=== PATIENT | female | born 1975 | race Caucasian/White ===

== ENCOUNTER 2016-06-14 06:13 | Day surgery (SDC) | payer OTHER ==
[~2016-06-14] VITALS: Ht 160 cm; Wt 63.5 kg
[2016-06-14] MEDS ORDERED: fentaNYL CITRATE 250 MCG/5 ML AMP IV ONE (07:10)
[2016-06-14] MEDS ORDERED: SEVOFLURANE 15 MIN GAS INH ONE (07:10)
[2016-06-14] MEDS ORDERED: NEOSTIGMINE METHYLSULFATE 1 MG/ML, 10 ML VIAL IVP ONE (07:10)
[2016-06-14] MEDS ORDERED: MIDAZOLAM HCL 5 MG/5 ML VIAL IVP ONE (07:10)
[2016-06-14] MEDS ORDERED: FUROSEMIDE 20 MG/2 ML VIAL IVP ONE (07:10)
[2016-06-14] MEDS ORDERED: GLYCOPYRROLATE 0.2 MG/ML VIAL IJ ONE (07:10)
[2016-06-14] MEDS ORDERED: DEXAMETHASONE SOD PHOSPHATE 4 MG/ML VIAL IVP ONE (07:10)
[2016-06-14] MEDS ORDERED: BUPIVACAINE /EPINEPHRINE/PF 0.5% 30 ML VIAL INJ ONE (07:10)
[2016-06-14] MEDS ORDERED: D5W 50 ML IV.SOLN IV ONE (07:10)
[2016-06-14] MEDS ORDERED: PROPOFOL 200MG/ 20ML VIAL (DIPRIVAN) IV ONE (07:10)
[2016-06-14] MEDS ORDERED: KETOROLAC TROMETHAMINE 30 MG VIAL IVP ONE (07:10)
[2016-06-14] MEDS ORDERED: ROCURONIUM BROMIDE 10 MG/ML (ZEMURON) IV ONE (07:10)
[2016-06-14] MEDS ORDERED: CEFAZOLIN 1 GM IVPB PREMIX 50 ML IV ONE (07:10)
[2016-06-14] MEDS ORDERED: NS 1000 ML BAG IV ONE (07:10)
[2016-06-14] MEDS ORDERED: LR 1,000 ML IV.SOLN IV ONE (07:10)
[2016-06-14] MEDS ORDERED: CEFAZOLIN SOD 1 GM in D5W 50 ML IV ONE (08:00)
[2016-06-14] MEDS ORDERED: LR 1,000 ML IV SCH (08:24)
[2016-06-14] MEDS ORDERED: HYDROmorphone 2 MG/ML VIAL IVP PRN ×2 (08:30)
[2016-06-14] MEDS ORDERED: HYDROmorphone 1 MG INJ. 1 MG/ML AMPUL IVP PRN (08:30)
[2016-06-14] MEDS ORDERED: MEPERIDINE HCL/PF 25 MG/ML DISP.SYRIN IVP PRN (08:30)
[2016-06-14 10:00] VITALS: BP_SYST 152
[2016-06-14] MEDS ORDERED: OXYCODONE/ACETAMINOPHEN 5-325 TABLET PO PRN ×2 (10:00)
[2016-06-14] MEDS ORDERED: ONDANSETRON HCL 4 MG/2 ML VIAL IVP PRN (10:00)
[2016-06-14] MEDS ORDERED: HYDROcodone/ACETAMIN 5-325 MG TAB (NORCO/ VICODIN) PO PRN (10:00)
[2016-06-14] MEDS ORDERED: HYDROmorphone 1 MG INJ. 1 MG/ML AMPUL ONE (10:39)
[2016-06-14] MEDS ORDERED: KETOROLAC TROMETHAMINE 30 MG VIAL IM ONE (14:00)
[2016-06-14] MEDS: SIMETHICONE 80 MG TAB.CHEW PO SCH ×3 (14:19→21:00)
[2016-06-14] MEDS ORDERED: KETOROLAC TROMETHAMINE 30 MG VIAL IVP SCH (20:00)
== END 2016-06-15 12:00 | disposition home or self-care (01) ==
LOC: SDS 06:13 → SMU 06:14 → SPU 11:25 → SDS 06-15 12:00
PROVIDERS: ATTEND Specialist
DX: D25.0 Submucous leiomyoma of uterus (principal); N83.292 Other ovarian cyst, left side; N39.3 Stress incontinence (female) (male); N81.6 Rectocele
CPT/HCPCS: 52000; 57000; 58571; 88307; C1727; J0690; J1100; J1170; J1885; J1940; J2250; J2704; J2710; J3010; J3490 ×2; J7030; J7060; J7120

== ENCOUNTER 2017-10-18 08:32 | Inpatient (IN) | payer OTHER ==
[~2017-10-18] VITALS: Ht 160 cm; Wt 61.2 kg
[2017-10-18] MEDS ORDERED: POLYMYXIN 500,000/BACIT.10,000 UNITS in NS IRR 1 L IR ONE (10:28)
[2017-10-18] MEDS ORDERED: LR 1,000 ML IV SCH (12:13)
[2017-10-18] MEDS ORDERED: MORPHINE 4 MG/ML INJ. SYRINGE IVP PRN ×3 (12:15)
[2017-10-18] MEDS ORDERED: METOCLOPRAMIDE HCL 10 MG/2 ML VIAL IVP PRN (12:15)
[2017-10-18] MEDS ORDERED: ONDANSETRON HCL 4 MG/2 ML VIAL IVP PRN (13:00)
--- NOTE | 2017-10-18 13:45 | NUR ---
ADMISSION: The patient, LINCOLN SHIELDS, 42 y/o, F admitted by from PACU, was given written information regarding hospital policies, unit procedures and contact persons. Valuables were checked and belongings will be at bedside but lilli valadez taken home by . PATIENT AWAKE. A/Ox4. ROOM AIR. NO ACUTE DISTRESS. NO SOB. RESPIRATION EVEN AND UNLABORED. PATIENT C/O BEING SORE BUT MANAGEABLE. SKIN WARM AND DRY TO TOUCH. IV TO LEFT HAND 20G INTACT AND PATENT WITH NO S/SX INFECTION/INFILTRATION NOTED. FULTON CATH INTACT AND PATENT WITH YELLOW URINE NOTED. GABBIE BILAT SCDs. ORIENTED PATIENT TO CALL LIGHT AND TO USE FOR ASSIST, PATIENT VERBALIZED UNDERSTANDING. ALL NEEDS MET. CALL LIGHT IN REACH. CONTINUE TO MONITOR. AT BEDSIDE.
[2017-10-18 14:00] VITALS: BP_SYST 109
--- NOTE | 2017-10-18 14:30 | NUR ---
NOTES PATIENT SITTING UP IN BED. INSTRUCTED PATIENT TO USE INCENTIVE SPIROMETER. PATIENT DEMONSTRATED AND WAS ABLE TO DO 1500-2000CC. INSTRUCTED PATIENT TO ATTEMPT 10X/HR, PATIENT VERBALIZED UNDERSTANDING. AT BEDSIDE. CONT TO MONITOR. CALL LIGHT IN REACH.
--- NOTE | 2017-10-18 15:00 | NUR ---
NOTES SKIN ASSESSMENT DONE. VAGINAL PACKING IN PLACE WITH SCANT BLOOD NOTED ON OUTER PACKING. NO VAGINAL BLEEDING NOTED. SANITARY PAD CLEAN AND DRY. ALL NEEDS MET. CALL LIGHT IN REACH. CONT TO MONITOR.
[2017-10-18] MEDS ORDERED: OXYCODONE/ACETAMINOPHEN 5-325 TABLET PO PRN ×2 (15:15)
[2017-10-18] MEDS ORDERED: HYDROcodone/ACETAMIN 5-325 MG TAB (NORCO/ VICODIN) PO PRN (15:15)
--- NOTE | 2017-10-18 17:30 | NUR ---
PAIN PATIENT COMPLAIN OF PAIN TO LEG; PERCOCET ADMINISTERED ORDERED, GABBIE WELL. VITAL SIGN STABLE. ALL NEEDS MET. CALL LIGHT IN REACH. CONT TO MONITOR.
--- NOTE | 2017-10-18 17:45 | NUR ---
AMBULATE ATTEMPTED AMBULATION WITH PATIENT. PATIENT ABLE TO STAND AND TAKE 4 STEPS BEFORE WANTING TO RETURN TO BED. ALL NEEDS MET. CONT TO MONITOR. CALL LIGHT IN REACH.
[2017-10-18] MEDS ORDERED: KETOROLAC TROMETHAMINE 30 MG VIAL IVP PRN (18:00)
[2017-10-18] MEDS ORDERED: CLINDAMYCIN 600 MG in D5W 50 ML IV ONE (18:00)
--- NOTE | 2017-10-18 18:00 | NUR ---
NOTES PATIENT REQUESTED FOR MORE ICE CHIPS. ALL NEEDS MET. CALL LIGHT IN REACH. CONTINUE TO MONITOR.
--- NOTE | 2017-10-18 18:45 | NUR ---
CLOSING NOTE PATIENT RESTING IN BED EATING CHIPS. VITAL SIGN STABLE. NO ACUTE DISTRESS. NO SOB. RESPIRATION EVEN AND UNLABORED. SKIN WARM AND DRY TO TOUCH. IV INTACT AND PATENT. NO VAGINAL BLEEDING NOTED. FULTON CATH INTACT AND PATENT. PATIENT REQUESTED TO REMOVE SCD AT THIS TIME. ALL NEEDS MET. CALL LIGHT IN REACH. CONT TO MONITOR. WILL ENDORSE TO ONCOMING SHIFT.
[2017-10-18 20:00] VITALS: BP_SYST 97
--- NOTE | 2017-10-18 20:00 | NUR ---
Initial Notes Received patient resting in bed, awake, alert, oriented. Patient denies any acute distress at this time. Breathing is even and unlabored. IV site patent/clean/dry. Loco draining to gravity. Vaginal packing noted, no S/S active bleeding noted. Educated patient regarding use of call light for assistance and fall precautions, patient verbalized understanding. Call light in hand, fall precautions in place. Will continue to monitor.
--- NOTE | 2017-10-18 22:00 | NUR ---
Nursing Notes Patient resting in bed watching TV. Patient denies any acute distress or pain at this time. Breathing is even and unlabored. Loco draining to gravity. No S/S active bleeding noted/reported. Needs addressed, will continue to monitor.
[2017-10-18 22:56] VITALS: BP_SYST 103
--- NOTE | 2017-10-19 00:36 | NUR ---
Nursing Notes Patient resting in bed with eyes closed. No acute distress noted, breathing is even and unlabored. Loco draining to gravity. Call light in hand, fall precautions in place. Will continue to monitor.
--- NOTE | 2017-10-19 02:24 | NUR ---
Nursing Notes Patient resting comfortable in bed with eyes closed. No acute distress noted. Breathing is even and unlabored. Loco draining to gravity. Fall precautions in place, will continue to monitor.
--- NOTE | 2017-10-19 04:25 | NUR ---
Nursing Notes Patient resting in bed, awake. Patient denies any acute distress or pain at this time. Breathing is even and unlabored. Loco draining to gravity. No change noted to vaginal packing, no S/S active bleeding noted. Hygiene care provided by MANUFACTURING BUSINESS ANALYST. Needs addressed. Call light in hand, fall precautions in place.
[2017-10-19 06:10] VITALS: BP_SYST 103
--- NOTE | 2017-10-19 06:10 | NUR ---
NOTES: discontinued boles catheter as ordered and removed vaginal packing, intact, no bleeding , noted still sore on her upper inner thighs and told her because of the position during the procedure, informed nurse Nikita for pain med. VS checked BP 103/53 HR 63 Temp 97.7 O2 sat 99% on room air. gave loi pad and underwear, urine hat when she needs to void.
--- NOTE | 2017-10-19 06:36 | NUR ---
Closing Notes Patient resting in bed with eyes closed, easily aroused. Patient denies any acute distress at this time. Breathing is even and unlabored. IV site patent/clean/dry, no S/S infection/infiltration noted. Needs addressed throughout shift. Call light in hand, fall precautions in place. Will continue to monitor for changes and safety, and endorse all patient care/needs to oncoming nurse. Patient verbalize understanding to call nurse to measure urine output after voiding.
--- NOTE | 2017-10-19 07:25 | NUR ---
AM ROUNDS: PATIENT ON THE BED,ON THE PHONE. CALL LIGHT WITH IN REACH. BED LOCKED AT LOWEST POSITION. NO NEEDS THIS TIME. BEDSIDE REPORT GIVEN BY NIGHT NURSE DOYLE.
[2017-10-19 08:44] VITALS: BP_SYST 115
--- NOTE | 2017-10-19 08:50 | NUR ---
Shayne Leung: Dr beckman came saw patient. Dc if no problem in voiding post dc boles after 4hours.Needs attended to. Addendum: 10/19/17 at 1737 by Kimberly Meza RN added notes: if bladder scan showed less than 125cc after void,patient dc home with prescriptions.
--- NOTE | 2017-10-19 09:03 | NUR ---
Nutrition Update Layo Scale 18 noted. Pt admitted for other specified disorders of urethra. Diet: regular BMI: 23.9 kg/m2 RD to follow per nutrition care standards.
--- NOTE | 2017-10-19 10:20 | NUR ---
VOIDED: VOIDED POST DC FULTON.BLADDER SCAN SHOWED RESIDUALS OF LESS THAN 125CC.DC HOME ORDERED.
[2017-10-19 12:00] VITALS: BP_SYST 104
--- NOTE | 2017-10-19 12:15 | NUR ---
RN ROUNDS: STABLE.WAITING FOR HER RIDE.NO NEEDS THIS TIME.
--- NOTE | 2017-10-19 12:20 | NUR ---
VOIDED: VOIDED POST DC FULTON.BLADDER SCAN SHOWED RESIDUAL OF LESS THAN 125CC. DC HOME ORDERED. Addendum: 10/19/17 at 1234 by Kimberly Meza RN CORRECTED ABOVE NOTES; INCORRECT TIME.CORRECT TIME 10:20AM.
[2017-10-19 12:51] VITALS: BP_SYST 104
[2017-10-19] MEDS ORDERED: DEXTROSE 50% JECT 50 ML DISP.SYRIN ONE (12:55)
[2017-10-19] MEDS ORDERED: SEVOFLURANE 15 MIN GAS INH ONE (12:55)
[2017-10-19] MEDS ORDERED: LR 1,000 ML IV.SOLN IV ONE (12:55)
[2017-10-19] MEDS ORDERED: ROCURONIUM BROMIDE 10 MG/ML (ZEMURON) ONE (12:55)
[2017-10-19] MEDS ORDERED: ONDANSETRON HCL 4 MG/2 ML VIAL ONE (12:55)
[2017-10-19] MEDS ORDERED: BUPIVACAINE /PF 0.5% 30 ML VIAL ONE (12:55)
[2017-10-19] MEDS ORDERED: PROPOFOL 200MG/ 20ML VIAL (DIPRIVAN) IV ONE (12:55)
[2017-10-19] MEDS ORDERED: EPINEPHrine 1 MG/ML AMP ONE (12:55)
[2017-10-19] MEDS ORDERED: fentaNYL CITRATE 250 MCG/5 ML AMP ONE (12:55)
[2017-10-19] MEDS ORDERED: MIDAZOLAM HCL 5 MG/ML VIAL (VERSED) IV ONE (12:55)
[2017-10-19] MEDS ORDERED: KETOROLAC TROMETHAMINE 30 MG VIAL ONE (12:55)
[2017-10-19] MEDS ORDERED: OXYC-130 PO ×2 (12:57→12:58)
--- NOTE | 2017-10-19 13:35 | NUR ---
DC NOTES: TRANSITIONAL CARE DOCUMENT AND PRESCRIPTIONS GIVEN TO PATIENT AND VERBALIZED UNDERSTANDING. DENIES ANY PAIN.PERSONAL BELONGINGS COMPLETED AND SEND HOME WITH THE PATIENT.IV REMOVED,DRY GAUZE APPLIED AND NO BLEEDING TO THE SITE.ACCOMPANIED HOME BY HER FATHER IN STABLE CONDITION.
== END 2017-10-19 13:35 | disposition home or self-care (01) | DRG 748 ==
LOC: SDS 08:32 → SMU 08:32 → SDS 10-19 10:16 → SMU 10-19 10:17
PROVIDERS: ADMIT Specialist; ATTEND Specialist
PROC: 0TSD4ZZ Reposition Urethra, Percutaneous Endoscopic Approach (ICD-10-PCS; 2017-10-18)
PROC: 0JUC3JZ Supplement of Pelvic Region Subcutaneous Tissue and Fascia with Synthetic Substitute, Percutaneous Approach (ICD-10-PCS; principal; 2017-10-18 09:30)
DX: N39.3 Stress incontinence (female) (male) (principal); N89.5 Stricture and atresia of vagina; N99.3 Prolapse of vaginal vault after hysterectomy; Z88.0 Allergy status to penicillin
CPT/HCPCS: 87081; 88305; J0171; J1885; J2250; J2405; J2704; J3010; J3490; J7060; J7120